=== PATIENT | female | born 1940 | race Caucasian/White ===

== ENCOUNTER → 2016-08-07 | Outpatient (CLI) | payer OTHER | LOC: BMCIMAGING 16:55 | PROVIDERS: ATTEND Family Medicine | DX: Z01.818 Encounter for other preprocedural examination (principal) ==

== ENCOUNTER 2016-08-12 23:01 | Inpatient (IN) | payer OTHER ==
[2016-08-12] MEDS ORDERED: NS 1,000 ML IV ONE (23:09)
--- NOTE | 2016-08-12 23:14 | EDPHY ---
H & P Time Seen by Provider: 08/12/16 23:08 HPI/ROS: HPI The patient presents with an episode of decreased responsiveness which occurred just prior to arrival. She had taken a shower and was sitting on the couch watching the news with her family when she because began mumbling and slumped forward. She was not able to talk clearly and was mumbling. She was able to follow some commands but seemed generally weak. Her family noticed some shaking of her right arm. This lasted for about 3 minutes head and then resolved. By the time paramedics arrived the patient was awake and alert though appeared ashen and diaphoretic. The patient says that she did not have any warning prior to this episode, no dizziness, lightheadedness, chest pain, palpitations, shortness of breath. She now feels well. She is not on any new medications. She is supposed to undergo spinal surgery tomorrow for herniated disc. She has been under significant amount of stress. She is here with her family who are in from out of town for her operation.. REVIEW OF SYSTEMS Constitutional: No fever, no chills. Eyes: No discharge. ENT: No sore throat. Cardiovascular: No chest pain, no palpitations. Respiratory: No cough, no shortness of breath. Gastrointestinal: No abdominal pain, no vomiting. Genitourinary: No hematuria. Musculoskeletal: No back pain. Skin: No rashes. Neurological: No headache. PMHx: History of brain aneurysm with shunt Soc Hx: Lives at home by herself PHYSICAL General Appearance: Alert, no distress Eyes: Pupils equal and round no pallor or injection ENT, Mouth: Mucous membranes moist Respiratory: There are no retractions, lungs are clear to auscultation Cardiovascular: Regular rate and rhythm Gastrointestinal: Abdomen is soft and non-tender, no masses, bowel sounds normal Neurological: A&O, moves all extremities Skin: Warm and dry, no rashes Musculoskeletal: Neck is supple non tender Extremities: symmetrical, full range of motion Psychiatric: Patient is oriented X 3, there is no agitation Source: Patient, Family, EMS - Medical/Surgical History Hx Diabetes: No - Social History Smoking Status: Former smoker Constitutional: Initial Vital Signs Temperature (C) 36.5 C 08/12/16 23:10 Heart Rate 63 08/12/16 23:10 Respiratory Rate 16 08/12/16 23:10 Blood Pressure 137/78 H 08/12/16 23:10 O2 Sat (%) 96 08/12/16 23:10 O2 Delivery Mode Room Air Allergies/Adverse Reactions: topiramate [From Topamax] Allergy (Severe, Verified 08/03/16 13:48) LOSS OF EYESIGHT Home Medications: Medication Instructions Recorded Aspirin EC [Aspirin EC 325 mg (*)] 325 mg PO DAILY PRN 07/27/16 Atorvastatin Calcium [Lipitor 20 20 mg PO DAILY 07/27/16 mg (*)] Diclofenac Sodium [Voltaren 75 MG 75 mg PO BID PRN 07/27/16 (*)] Furosemide [Lasix 40 MG (*)] 40 mg PO DAILY 07/27/16 Metoprolol Tartrate [Lopressor 25 25 mg PO BID 07/27/16 mg (*)] Potassium Cl [Klor-Con 20 meq (*)] 20 meq PO DAILY 07/27/16 Valsartan/Hctz [Diovan Hct 80/12.5 2 each PO DAILY 07/27/16 mg (*)] Zolpidem Tartrate [Ambien 5MG (*)] 5 mg PO HS PRN 07/27/16 methYLPHENIDATE HCL [Ritalin 10mg 10 mg PO DAILY PRN 07/27/16 (*)] traMADol [Ultram 50 mg (*)] 50 mg PO Q6 PRN 07/27/16 Medical Decision Making - Diagnostics EKG Interpretation: EKG: Complete interpretation has been separately recorded in the [facility] archive. Summary impression: Normal sinus rhythm Imaging: CT head shows no acute bleed, discussed with the radiologist Dr. Valdez. Chest x-ray one view is unremarkable without infiltrate, reviewed by me, radiology interpretation is pending. ED Course/Re-evaluation: The patient was stable throughout her time in the emergency room. Her neurologic exam was always normal. She had no events on telemetry. Labs and studies were all relatively unremarkable except for mild dehydration. I have discussed the case with the hospitalist Dr. Iglesias and we plan to admit her for observation. The patient is in agreement with this plan. Differential Diagnosis: This 76-year-old female with history of brain aneurysm, hypertension, hyperlipidemia, scheduled for spinal operation tomorrow for herniated disc who presents brought in by ambulance for an episode of unresponsiveness which occurred while she was seated on the couch with no preceding symptoms, lasting for about 3 minutes, now completely resolved with normal neurologic exam. During this episode she seemed to be awake, however could not follow all commands and was slumped forward though eyes were open. Differential diagnosis includes TIA, syncope, presyncope, seizure. - Data Points Laboratory Results: Laboratory Results 08/12/16 23:00 08/12/16 23:00 08/12/16 08/12/16 23:00 23:00 WBC 9.24 10^3/uL 10^3/uL (3.80-9.50) RBC 4.78 10^6/uL 10^6/uL (4.18-5.33) Hgb 14.9 g/dL g/dL (12.6-16.3) Hct 41.7 % % (38.0-47.0) MCV 87.2 fL fL (81.5-99.8) MCH 31.2 pg pg (27.9-34.1) MCHC 35.7 g/dL g/dL (32.4-36.7) RDW 12.7 % % (11.5-15.2) Plt Count 201 10^3/uL 10^3/uL (150-400) MPV 12.4 fL H fL (8.7-11.7) Neut % (Auto) 54.4 % % (39.3-74.2) Lymph % (Auto) 32.8 % % (15.0-45.0) [place] % (Auto) 10.2 % % (4.5-13.0) Eos % (Auto) 1.4 % % (0.6-7.6) Baso % (Auto) 1.0 % % (0.3-1.7) Nucleat RBC Rel Count 0.0 % % (0.0-0.2) Absolute Neuts (auto) 5.03 10^3/uL 10^3/uL (1.70-6.50) Absolute Lymphs (auto) 3.03 10^3/uL H 10^3/uL (1.00-3.00) Absolute Monos (auto) 0.94 10^3/uL H 10^3/uL (0.30-0.80) Absolute Eos (auto) 0.13 10^3/uL 10^3/uL (0.03-0.40) Absolute Basos (auto) 0.09 10^3/uL 10^3/uL (0.02-0.10) Absolute Nucleated RBC 0.00 10^3/uL 10^3/uL (0-0.01) Immature Gran % 0.2 % % (0.0-1.1) Immature Gran # 0.02 10^3/uL 10^3/uL (0.00-0.10) Sodium 139 mEq/L mEq/L (134-144) Potassium 3.3 mEq/L L mEq/L (3.5-5.2) Chloride 98 mEq/L mEq/L (97-110) Carbon Dioxide 27 mEq/l mEq/l (22-31) Anion Gap 14 mEq/L mEq/L (8-16) BUN 34 mg/dL H mg/dL (7-23) Creatinine 1.3 mg/dL H mg/dL (0.6-1.0) Estimated GFR 40 Glucose 106 mg/dL H mg/dL (70-100) Calcium 9.8 mg/dL mg/dL (8.5-10.4) Troponin I 0.016 ng/mL ng/mL (0-0.034) Medications Given: Discontinued Medications Sodium Chloride (Ns) 1,000 mls @ 500 mls/hr IV EDNOW ONE Stop: 08/13/16 01:08 Last Admin: 08/12/16 23:26 Dose: 1,000 mls Potassium Chloride (Potassium Chloride Oral Liquid) 40 meq PO ONCE ONE Stop: 08/13/16 02:31 Last Admin: 08/13/16 01:58 Dose: Not Given Zolpidem Tartrate (Ambien) 5 mg PO ONCE ONE Stop: 08/13/16 01:59 Last Admin: 08/13/16 02:02 Dose: 5 mg Departure - Departure Disposition: [facility] Clinical Impression: Altered mental status Qualifiers: Altered mental status type: transient alteration of awareness Qualified Code(s) : R40.4 - Transient alteration of awareness Condition: Fair
[2016-08-12 23:23] LABS: % IMMATURE GRANULYOCYTES 0.2 % (0.0-1.1); ABSOLUTE IMMATURE GRANULOCYTES 0.02 10^3/uL (0.00-0.10); ADD DIFF? NO; ADD MORPH? NO; ADD SCAN? NO; ATYPICAL LYMPHOCYTE FLAG 10 (0-99); FRAGMENT RBC FLAG 0 (0-99); HEMATOCRIT 41.7 % (38.0-47.0); HEMOGLOBIN 14.9 g/dL (12.6-16.3); LEFT SHIFT FLG 0 (0-99); LIPEMIA HEMOLYSIS FLAG 90 (0-99); MEAN CELL HEMOGLOBIN 31.2 pg (27.9-34.1); MEAN CELL HEMOGLOBIN CONCENTR. 35.7 g/dL (32.4-36.7); MEAN CELL VOLUME 87.2 fL (81.5-99.8); MEAN PLATELET VOLUME 12.4 fL (8.7-11.7); PLATELET CLUMPS FLAG 0 (0-99); PLATELET COUNT 201 10^3/uL (150-400); RED BLOOD CELL COUNT 4.78 10^6/uL (4.18-5.33); RED CELL DISTRIBUTION WIDTH 12.7 % (11.5-15.2)
[2016-08-12 23:34] LABS: ANION GAP 14 mEq/L (8-16); CALCIUM 9.8 mg/dL (8.5-10.4); CARBON DIOXIDE 27 mEq/l (22-31); CHLORIDE 98 mEq/L (97-110); CREATININE 1.3 mg/dL (0.6-1.0); GLOMERULAR FILTRATION RATE 40; GLUCOSE 106 mg/dL (70-100); POTASSIUM 3.3 mEq/L (3.5-5.2); SODIUM 139 mEq/L (134-144)
[2016-08-12 23:44] LABS: TROPONIN I 0.016 ng/mL (0-0.034)
[2016-08-13] MEDS ORDERED: NS 1,000 ML IV SCH (00:30)
--- NOTE | 2016-08-13 00:32 | CPEKG ---
Heart Rate: 64 RR Interval: 938 P-R Interval: 196 QRSD Interval: 96 QT Interval: 436 QTC Interval: 450 P [place]: 56 QRS [place]: -17 T Wave [place]: 34 EKG Severity - ABNORMAL ECG - EKG Impression: SINUS RHYTHM EKG Impression: BORDERLINE LEFT AXIS DEVIATION Electronically Signed By: Camila Fox 13-Aug-2016 06:21:41
[2016-08-13 01:04] LABS: COLOR YELLOW; LEUKOCYTE ESTERASE,URINE 2+ (NEGATIVE); NITRITE,URINE NEGATIVE (NEGATIVE)
--- NOTE | 2016-08-13 01:09 | PDGENHP ---
History and Physical - Chief Complaint unresponsive episode - History of Present Illness Patient is a 76/F with hypertension, hyperlipidemia, lumbar radiculopathy and history of clipped cerebral aneurysm who presented to the ED with an episode of unresponsiveness this evening. Patient was sitting on the couch with her daughter, when she indicated to her daughter she was not feeling well. When daughter looked over patient was trying to speak but her speech was dysarthric and she seemed like she couldn't express herself. Patient did not feel like she lost consciousness, but she reported feeling an extreme weakness and that she couldn't speak. Daughter then immediately called EMS. By the time EMS arrived to the home about 3-5 minutes later, the patient's symptoms had completely resolved and she was back to her baseline. With this aphasic episode, daughter denies any obvious facial drooping, patient denies any numbness, tingling or focal weakness. Of note, patient suffers from lumbar spondylolisthesis with chronic R sided radicular pain and was scheduled to undergo lumbar spinal surgery on 08/13. Patient states she had been prescribed tramadol for the pain until her surgery, which she states had decreased her appetite and caused her significant nausea/ vomiting over the past 1-2 weeks. She denies any recent fevers, chills, headache , chest pain, palpitations, abdominal pain or dysuria. Also of note, in preparation for her lumbar surgery, she underwent nuclear stress testing last week that was reported as normal. On arrival to the ED, patient was afebrile and hemodynamically stable. CBC was normal, BMP revealed hypokalemia and mild elevation in BUN/creatinine when compared to pre-op labs from 08/07. CXR was unremarkable and CT head showed her chronic [employer] shunt, but no acute abnormalities. EKG showed TWI in V 1-V3 (no old to compare). She was given IVF hydration and admitted to the hospitalist service for further management. History Information - Allergies/Home Medication List Allergies/Adverse Reactions: topiramate [From Topamax] Allergy (Severe, Verified 08/03/16 13:48) LOSS OF EYESIGHT Home Medications: Aspirin EC [Aspirin EC 325 mg (*)] 325 mg PO DAILY PRN 07/27/16 [Last Taken Unknown] Atorvastatin Calcium [Lipitor 20 mg (*)] 20 mg PO DAILY 07/27/16 [Last Taken Unknown] Diclofenac Sodium [Voltaren 75 MG (*)] 75 mg PO BID PRN 07/27/16 [Last Taken Unknown] Furosemide [Lasix 40 MG (*)] 40 mg PO DAILY 07/27/16 [Last Taken Unknown] Metoprolol Tartrate [Lopressor 25 mg (*)] 25 mg PO BID 07/27/16 [Last Taken Unknown] Potassium Cl [Klor-Con 20 meq (*)] 20 meq PO DAILY 07/27/16 [Last Taken Unknown] Valsartan/Hctz [Diovan Hct 80/12.5 mg (*)] 2 each PO DAILY 07/27/16 [Last Taken Unknown] Zolpidem Tartrate [Ambien 5MG (*)] 5 mg PO HS PRN 07/27/16 [Last Taken Unknown] methYLPHENIDATE HCL [Ritalin 10mg (*)] 10 mg PO DAILY PRN 07/27/16 [Last Taken Unknown] traMADol [Ultram 50 mg (*)] 50 mg PO Q6 PRN 07/27/16 [Last Taken Unknown] I have personally reviewed and updated: family history, medical history, social history, surgical history - Past Medical History Additional medical history: HTN. HLD. lumbar radiculopathy. h/o cerebral aneurysm rupture s/p clipping and [employer] shunt placement - Surgical History Additional surgical history: R shoulder replacement. Appendectomy. 2004 craniotomy for aneurysm clipping and shunt placement - Family History Additional family history: pt adopted - Social History Smoking Status: Former smoker (quit 20 years ago, smoked x 30 years) Alcohol Use: None Drug Use: None Additional social history: Patient lives alone in [place], two daughters live in [place] where she is originally from. Review of Systems ROS: 10pt was reviewed & negative except for what was stated in HPI & below Physical Exam Temp Pulse Resp BP Pulse Ox 36.4 C 68 16 125/74 H 94 08/13/16 00:00 08/13/16 00:19 08/13/16 00:19 08/13/16 00:19 08/13/16 00:19 Constitutional: no apparent distress, appears nourished, not in pain Eyes: PERRL, anicteric sclera, EOMI Ears, Nose, Mouth, Throat: moist mucous membranes, hearing normal, ears appear normal, no oral mucosal ulcers Cardiovascular: regular rate and rhythym, no murmur, rub, or gallop, pulses symmetric bilaterally, No JVD, No edema Peripheral Pulses: 2+: dorsalis-pedis (R), dorsalis-pedis (L) Respiratory: no respiratory distress, no rales or rhonchi, clear to auscultation Gastrointestinal: normoactive bowel sounds, soft, non-tender abdomen, no palpable masses Genitourinary: no bladder fullness, no bladder tenderness Skin: warm, normal color, no rashes or abrasions, no fluctuance, no induration, No mottled Musculoskeletal: full muscle strength, no muscle tenderness, normal joint ROM, no joint effusions Neurologic: AAOx3, sensation intact bilaterally, CN II-XII Intact, No weakness, No numbness, No pronator drift, No facial droop Psychiatric: interacting appropriately, not anxious, not encephalopathic, thought process linear Lab Data & Imaging Review 08/12/16 23:00 08/12/16 23:00 WBC 9.24 10^3/uL (3.80-9.50) 08/12/16 23:00 RBC 4.78 10^6/uL (4.18-5.33) 08/12/16 23:00 Hgb 14.9 g/dL (12.6-16.3) 08/12/16 23:00 Hct 41.7 % (38.0-47.0) 08/12/16 23:00 MCV 87.2 fL (81.5-99.8) 08/12/16 23:00 MCH 31.2 pg (27.9-34.1) 08/12/16 23:00 MCHC 35.7 g/dL (32.4-36.7) 08/12/16 23:00 RDW 12.7 % (11.5-15.2) 08/12/16 23:00 Plt Count 201 10^3/uL (150-400) 08/12/16 23:00 MPV 12.4 fL (8.7-11.7) H 08/12/16 23:00 Neut % (Auto) 54.4 % (39.3-74.2) 08/12/16 23:00 Lymph % (Auto) 32.8 % (15.0-45.0) 08/12/16 23:00 [place] % (Auto) 10.2 % (4.5-13.0) 08/12/16 23:00 Eos % (Auto) 1.4 % (0.6-7.6) 08/12/16 23:00 Baso % (Auto) 1.0 % (0.3-1.7) 08/12/16 23:00 Nucleat RBC Rel Count 0.0 % (0.0-0.2) 08/12/16 23:00 Absolute Neuts (auto) 5.03 10^3/uL (1.70-6.50) 08/12/16 23:00 Absolute Lymphs (auto) 3.03 10^3/uL (1.00-3.00) H 08/12/16 23:00 Absolute Monos (auto) 0.94 10^3/uL (0.30-0.80) H 08/12/16 23:00 Absolute Eos (auto) 0.13 10^3/uL (0.03-0.40) 08/12/16 23:00 Absolute Basos (auto) 0.09 10^3/uL (0.02-0.10) 08/12/16 23:00 Absolute Nucleated RBC 0.00 10^3/uL (0-0.01) 08/12/16 23:00 Immature Gran % 0.2 % (0.0-1.1) 08/12/16 23:00 Immature Gran # 0.02 10^3/uL (0.00-0.10) 08/12/16 23:00 Sodium 139 mEq/L (134-144) 08/12/16 23:00 Potassium 3.3 mEq/L (3.5-5.2) L 08/12/16 23:00 Chloride 98 mEq/L (97-110) 08/12/16 23:00 Carbon Dioxide 27 mEq/l (22-31) 08/12/16 23:00 Anion Gap 14 mEq/L (8-16) 08/12/16 23:00 BUN 34 mg/dL (7-23) H 08/12/16 23:00 Creatinine 1.3 mg/dL (0.6-1.0) H 08/12/16 23:00 Estimated GFR 40 08/12/16 23:00 Glucose 106 mg/dL (70-100) H 08/12/16 23:00 Calcium 9.8 mg/dL (8.5-10.4) 08/12/16 23:00 Troponin I 0.016 ng/mL (0-0.034) 08/12/16 23:00 Visualized and Interpreted Chest x-ray results: Yes Chest X-Ray results: no infiltrate, normal Visualized and Interpreted EKG results: Yes EKG Interpretation: Positive for: normal sinsus rhythm (TWI v1-v3) Assessment & Plan Assessment: Patient is a 76-year-old female with history of hypertension, hyperlipidemia, ruptured brain aneurysm and lumbar radiculopathy who presents with with an episode of aphasia lasting less than 10 minutes, now back to baseline neuro status. ED workup reveals mild CHIN, normal CT head and CXR. Plan: # transient aphasic episode Per the description given by patient and her daughter, differential includes TIA versus presyncopal/near syncopal episode. Patient does give a history of recent decreased p.o. intake, nausea and vomiting due to side effects from her pain medicine, and labs reveal evidence of dehydration. CT head, chest x-ray are within normal limits. UA is slightly positive for WBCs in leuk esterase, however patient denies any urinary symptoms, is afebrile and has no leukocytosis , so no clinical evidence to support urinary infection. For pre-op evaluation , patient recently had EKG, nuclear stress test performed last week, which were reported to be normal. Will evaluate for TIA with CT angio head/neck and MRI brain and obtain records from recent cardiac testing. Will also provide IVF hydration and replete and recheck electrolytes. # lumbar Spondylolisthesis with radiculopathy Patient's surgeon was informed of her admission. Pending completion of above will reassess timing of planned surgery. Will provide pain control prn. # HTN BP stable on presentation, will cont to monitor. # HLD Cont home med. # dispo: admit to observation status for TIA work up # gen: NPO Full code
[2016-08-13 01:13] LABS: MUCUS TRACE /lpf (NONE-1+); RBC,URINE 25-50 /hpf (0-3); WBC,URINE 25-50 /hpf (0-3)
[2016-08-13] MEDS ORDERED: POTASSIUM CL 20 MEQ/15 ML UDCUP PO ONE ×2 (01:31→02:30)
[2016-08-13] MEDS ORDERED: ZOLPIDEM TARTRATE 5 MG TAB PO ONE (01:58)
[2016-08-13] MEDS ORDERED: ONDANSETRON DISINTEGRATING 4 MG TAB ONE (06:37)
[2016-08-13 06:38] LABS: % IMMATURE GRANULYOCYTES 0.5 % (0.0-1.1); ABSOLUTE IMMATURE GRANULOCYTES 0.03 10^3/uL (0.00-0.10); ADD DIFF? NO; ADD MORPH? NO; ADD SCAN? NO; ATYPICAL LYMPHOCYTE FLAG 10 (0-99); FRAGMENT RBC FLAG 0 (0-99); HEMATOCRIT 32.4 % (38.0-47.0); HEMOGLOBIN 11.7 g/dL (12.6-16.3); LEFT SHIFT FLG 0 (0-99); LIPEMIA HEMOLYSIS FLAG 90 (0-99); MEAN CELL HEMOGLOBIN 32.6 pg (27.9-34.1); MEAN CELL HEMOGLOBIN CONCENTR. 36.1 g/dL (32.4-36.7); MEAN CELL VOLUME 90.3 fL (81.5-99.8); MEAN PLATELET VOLUME 12.4 fL (8.7-11.7); PLATELET CLUMPS FLAG 10 (0-99); PLATELET COUNT 124 10^3/uL (150-400); RED BLOOD CELL COUNT 3.59 10^6/uL (4.18-5.33); RED CELL DISTRIBUTION WIDTH 12.9 % (11.5-15.2)
[2016-08-13] MEDS: OXYCODONE/APAP 5/325 TAB PO PRN ×3 (06:39→22:51)
[2016-08-13 06:55] LABS: ANION GAP 9 mEq/L (8-16); CALCIUM 8.9 mg/dL (8.5-10.4); CARBON DIOXIDE 22 mEq/l (22-31); CHLORIDE 108 mEq/L (97-110); CREATININE 0.9 mg/dL (0.6-1.0); GLOMERULAR FILTRATION RATE > 60; GLUCOSE 94 mg/dL (70-100); POTASSIUM 3.4 mEq/L (3.5-5.2); SODIUM 139 mEq/L (134-144)
[2016-08-13 07:07] LABS: TROPONIN I 0.014 ng/mL (0-0.034)
--- NOTE | 2016-08-13 13:05 | HOSPPROG ---
Hospitalist Progress Note Assessment/Plan: #Concern for TIA: suspect due overmedication, dehydration and possible UTI. Symptoms completely resolved. CTA pending. MRI not warranted at this time (plus cannot perform since unclear type of [employer] shunt) #Pyuria: treated for UTI 2 weeks ago with Keflex. Hold off abx now, culture date pending #Lumbar spondylolithesis, radiculopathy: had surgery scheduled today with Dr. Murguia. He is determining schedule of time -recent EKG with bradycardia and no arrhythmia. Lexiscan test 08/08/16 with no ischemic changes #Benign HTN: home meds #HLD: statin #Diet regular #DVT ppx: ambulatory #Disp: awaiting NSGY plan, if no surgery planned then will DC home if normal CTA Subjective: feels fine today. No f/c/s Objective: Vital Signs Temp Pulse Resp BP Pulse Ox 36.4 C 70 18 103/58 L 94 08/13/16 08:00 08/13/16 08:00 08/13/16 08:00 08/13/16 08:00 08/13/16 08:00 Laboratory Results 08/13/16 06:20 08/13/16 06:00 08/12/16 08/13/16 08/14/16 05:59 05:59 05:59 Intake Total 1550 Output Total 500 Balance 1050 - Physical Exam Constitutional: no apparent distress Eyes: PERRL Ears, Nose, Mouth, Throat: moist mucous membranes Cardiovascular: regular rate and rhythym, no murmur, rub, or gallop Respiratory: no respiratory distress, no rales or rhonchi Gastrointestinal: normoactive bowel sounds, soft, non-tender abdomen, no palpable masses Genitourinary: no bladder fullness, other (no CVA TTP) Musculoskeletal: other (+ straight leg test on right. No pinpoint TTP) Neurologic: AAOx3, CN II-XII Intact Psychiatric: interacting appropriately ICD10 Worksheet Patient Problems: Problems Problem Status Onset Altered mental status Acute
[2016-08-13] MEDS: ATORVASTATIN CALCIUM 20 MG TAB PO SCH (15:54)
[2016-08-13] MEDS: FUROSEMIDE 40 MG TAB PO SCH (15:54)
[2016-08-13] MEDS: METOPROLOL TARTRATE 25 MG TAB PO SCH (22:51)
[2016-08-13] MEDS: ZOLPIDEM TARTRATE 5 MG TAB PO SCH (22:51)
[2016-08-14] MEDS ORDERED: BACITRACIN OINTMENT 1 PACKET TP ONE (05:45)
[2016-08-14 06:32] LABS: HEMATOCRIT 34.9 % (38.0-47.0); HEMOGLOBIN 12.2 g/dL (12.6-16.3); MEAN CELL HEMOGLOBIN 31.9 pg (27.9-34.1); MEAN CELL VOLUME 91.1 fL (81.5-99.8); RED BLOOD CELL COUNT 3.83 10^6/uL (4.18-5.33); RED CELL DISTRIBUTION WIDTH 13.2 % (11.5-15.2)
[2016-08-14] MEDS ORDERED: BUPIVACAINE/EPI 0.25% 30 ML SDV ONE (07:41)
[2016-08-14] MEDS ORDERED: THROMBIN (RECOMBINANT) 5,000 UNIT VIAL TP ONE (07:41)
[2016-08-14] MEDS ORDERED: BACITRACIN 50,000 UNITS/10 ML SYR IRR ONE (07:41)
[2016-08-14] MEDS ORDERED: SKIN ADHESIVE (DERMABOND) 1 EACH TP ONE (07:42)
[2016-08-14] MEDS ORDERED: REMIFENTANIL HCL 1 MG VIAL ONE ×3 (08:09→08:10)
[2016-08-14] MEDS ORDERED: ROCURONIUM 50 MG/5 ML VIAL ONE ×2 (08:09→08:57)
[2016-08-14] MEDS ORDERED: fentaNYL 100 MCG/2 ML INJ ONE ×3 (08:10→13:23)
[2016-08-14] MEDS ORDERED: PROPOFOL/EMULSION 500 MG/50 ML BOTTLE IV ONE ×3 (08:10→11:26)
[2016-08-14] MEDS ORDERED: DEXAMETHASONE 4 MG/ML VIAL ONE (08:13)
[2016-08-14] MEDS ORDERED: PROPOFOL 200 MG/20 ML VIAL ONE (08:14)
[2016-08-14] MEDS ORDERED: HYDROmorphONE/DILAUDID 2 MG/ML INJ ONE (08:58)
[2016-08-14] MEDS ORDERED: Herbals/Supplements -Info Only PO SCH (09:00)
[2016-08-14] MEDS ORDERED: ONDANSETRON 4 MG/2 ML VIAL ONE (11:44)
[2016-08-14] MEDS ORDERED: SUGAMMADEX SODIUM 200 MG/2 ML VIAL IVP ONE (11:44)
[2016-08-14] MEDS ORDERED: morphINE PF 5 MG/10 ML INJ ONE (11:57)
[2016-08-14] MEDS ORDERED: ceFAZolin 1 GM VIAL ONE (12:02)
[2016-08-14] MEDS ORDERED: DIAZEPAM 10 MG/2 ML SYR IVP PRN (12:59)
[2016-08-14] MEDS ORDERED: diphenhydrAMINE 25 MG CAP PO PRN (12:59)
[2016-08-14] MEDS ORDERED: PROMETHAZINE HCL 25 MG/ML INJ IVP PRN (12:59)
[2016-08-14] MEDS ORDERED: MAGNESIUM HYDROXIDE 30 ML UDCUP PO PRN (12:59)
[2016-08-14] MEDS ORDERED: BISACODYL 10 MG SUPP PR PRN (12:59)
[2016-08-14] MEDS ORDERED: HYDROmorphONE/DILAUDID 1 MG/ML SYR IVP PRN (12:59)
[2016-08-14] MEDS ORDERED: METHOCARBAMOL 750 MG TAB PO PRN (12:59)
[2016-08-14] MEDS ORDERED: POLYETHYLENE GLYCOL 3350 17 GM PKT PO PRN (12:59)
[2016-08-14] MEDS ORDERED: ONDANSETRON 4 MG/2 ML VIAL IVP PRN (12:59)
[2016-08-14] MEDS ORDERED: LACTULOSE 20 GM/30 ML UDCUP PO PRN (12:59)
--- NOTE | 2016-08-14 13:16 | POSTOPPROG ---
Post Op Note Date of Operation: 08/14/16 Surgeon: Gomez Murguia Traffic Administrator: Eliezer Stovall Anesthesiologist: Javier Willams Anesthesia: GET(General Endotracheal) Pre-op Diagnosis: lumbar spondylolisthesis w/ radiculopathy Post-op Diagnosis: lumbar spondylolisthesis w/ radiculopathy Procedure: L45, L5S1 PSF and TLIF's Findings: spondylolisthesis at L45 adn L5S1, compressed nerve root at L5S1 on Right Inf/Abcess present in the surg proc area at time of surgery?: No Depth: Organ Space EBL: 100-500 Drains: Aron Pollack
--- NOTE | 2016-08-14 13:34 | NEUSURGPN ---
Date of Surgery: 08/14/16 Post Op Day: 0 Assessment/Plan: 76F s/p L45 L5S1 PSF and TLIF's -advance diet as tolerated -optimize pain contol -no need for brace when OOB -PT/OT to eval and treat -DVT ppx POD#1 -JPx1 Case discussed with Dr. Murguia Subjective: Pt waking up form anesthesia, has some back pain and c/o of dry thoat Objective: NAD VSS EOMI, PEARLA cnii-xii grossly intact no facial droop MAEx4, BLE 5/5= =LT JPx1 incision c/d/i - Physician Discussed Patient with : [facility] Physical Exam - Vitals, I&O, Labs I and O 08/13/16 08/14/16 08/15/16 05:59 05:59 05:59 Intake Total 0 1300 Output Total 240 Balance 0 1060 Weight 80.28 kg Intake: IV Intake (ml) 0 1300 Output: Estimated Blood Loss (ml) 200 Wound Drainage (ml) 40 Back Aron Pollack 40 Vital Signs Temp Pulse Resp BP Pulse Ox 36.9 C 90 16 91/68 L 97 08/14/16 13:20 08/14/16 13:20 08/14/16 13:20 08/14/16 13:20 08/14/16 13:20 Laboratory Results 08/14/16 06:15 ICD10 Worksheet Patient Problems: Problems Problem Status Onset Altered mental status Acute
--- NOTE | 2016-08-14 13:38 | GOP ---
[f rep st] OPERATIVE REPORT Amended report DATE OF OPERATION: 08/14/2016 SURGEON: Gomez Murguia MD PRODUCE PRODUCTION TEAM MEMBER: Eliezer Stovall PA-C. ANESTHESIA: General endotracheal. PREOPERATIVE DIAGNOSIS: Right L5 radiculopathy with mobile spondylolisthesis at L4-5 and L5-S1. POSTOPERATIVE DIAGNOSIS: Right L5 radiculopathy with mobile spondylolisthesis at L4-5 and L5-S1. PROCEDURE PERFORMED: 1. L4-5, L5-S1 transforaminal lumbar interbody fusions. 2. Placement of pedicle screw posterior instrumentation at L4, L5, S1. 3. Placement of interbody device at L4-5, L5-S1. 4. O-arm stereotactic neuronavigation for screw placement. 5. [place] of local autograft. 6. Use of allograft, BMP, and demineralized bone matrix. 7. Hemilaminectomy at L4 and L5 with lateral recess decompression. FINDINGS: Spondylolisthesis. SPECIMENS: There were no specimens. ESTIMATED BLOOD LOSS: 200 cc. INDICATIONS: The patient a 76-year-old woman who has had intractable right L5 radiculopathy which has been resistant to conservative management. Her imaging showed a mobile spondylolisthesis at L4-5 and she was scheduled for surgery electively. She presents for that surgery today. Originally, we were planning on just L4-5 transfemoral lumbar interbody fusion. However, upon review of the films and after the O-arm spin it became evident that the larger spondylolisthesis was at L5-S1 and that this spondylolisthesis had been mislabeled on previous films because of her sacralized lumbar vertebrae. We, therefore, decided intraoperatively and I spoke to her daughters about including the L5-S1 level as it is quite possible that the steroid injections which were done also used this numbering system, which was incorrect and it did appear that there might be some foraminal stenosis at L5- S1 on the right side. DESCRIPTION OF PROCEDURE: After informed consent was obtained from the patient , the patient was brought to the operating room, and a formal time-out was performed identifying the patient by name, medical record number, and date of . Preoperative antibiotics were given. The endotracheal tube was placed and general endotracheal anesthesia was smoothly induced. All appropriate leads were placed for somatosensory evoked potential monitoring. The patient was turned into the prone position on the Aron table. All appropriate pressure points were padded and checked. The lower lumbar region was then prepped and draped in the normal sterile fashion. 20 cc of 0.25% Marcaine with epinephrine was infiltrated in the skin for hemostasis. The O-arm was used to obtain AP and lateral x-rays localizing the L4-5 interspace. This was used to plan a roughly 6 cm skin incision and this was made using a 10 blade. The subcutaneous tissue was dissected using monopolar electrocautery. The fascia was opened in the midline and the paraspinous muscles were taken down from the spinous process localizing the full facet joints at L4-5 and L5-S1. An O-arm spin was then obtained and this was ultimately when we made the decision to include the L5-S1 level. The slip at L4 -5 was smaller, but still mobile on the preoperative x-rays, but it appears as though the level that was originally labeled L4-5 on preoperative x-rays was indeed L5-S1. We, therefore, after speaking with the daughter decided to do L4- 5 and L5-S1 to get adequate decompression of the L5 nerve root which was compressed in the lateral recess from the L4-5 spondylolisthesis and the foramen from the L5-S1 spondylolisthesis. We then used the O-arm spin to place the pedicle screws stereotactically at L4, L5, and S1. At L4 on the left we placed a 6.5 x 55 mm Medtronic Solera screw at L5 on the left, 6.5 x 55 mm Medtronic Solera screw at S1 on the left, a 6.5 x 55 mm Medtronic Solera screw, at L4 on the right a 6.5 x 55 mm Medtronic Solera screw, at L5 on the right a 6.5 x 55 mm Medtronic Solera screw and at S1 on the right a 6.5 x 50 mm Medtronic Solera screw. All the screw heads were stimulated and all stimulated above threshold. A second O-arm spin was obtained showing all the screws in the pedicle with no breach. At this point, the high-speed drill was then used to drill down the inferior lamina of L4 and the complete lamina of L5 and the upper lamina of S1 on the right side. The inferior articulating process of L5 and L4 were removed exposing the foramen. The foramen at L4-5 and L5-S1 was completely decompressed on the right side and the L5 nerve root was followed all the way through the lateral recess down through the foramen and was completely decompressed. At this point, the disk space at L4-5 was localized and the L5 nerve root was retracted medially. The disk space was entered and a complete diskectomy was performed using curettes and pituitary forceps. Once the disk was completely removed the disk space was sized for an 8 mm x 28 mm Medtronic Elevate cage. Some BMP allograft was then placed in the contralateral side of the disk space as well as into the cage. Some autograft was also placed in the cage and the cage was then placed into the disk space and medialized across the midline. The position of the cage was confirmed with a lateral radiograph and the cage was opened to its full extent. We then packed a little bit more autograft bone on the ipsilateral side being sure that the nerve root was not compressed. The same procedure was then performed at L5-S1. The disk was completely removed and the disk space was sized for an 8 mm x 23 mm Medtronic Elevate cage which was again packed with some BMP and autograft. Some BMP and autograft was also placed on the opposite side of the disk space. The cage was placed into the disk space and it after its position was confirmed with AP and lateral radiographs the cage was opened to its fullest extent. At this point, the wound was copiously irrigated using bacitracin irrigation. Both the L4, L5, and S1 nerve roots were all completely decompressed on the right side. We, therefore, sized each side for 55 mm titanium rods which were placed into the screw heads and locked in with the cap screws which were finally tightened to their appropriate torque. At this point, the lamina of L4 , L5, and S1 on the left side was decorticated completely and a posterior lateral fusion was performed on that side using the remainder of the BMP and a mixture of the remainder of the autograft and some allograft, demineralized bone matrix, and bone chips. The wound was again copiously irrigated using bacitracin irrigation. 0.2 mg of Duramorph were injected under the upper edge of the L4 lamina for postoperative pain control. A subfascial HEMANT drain was then placed. The fascia was then closed using interrupted 0-Vicryl. The wound was then copiously irrigated using Bacitracin irrigation. The superficial lumbar fascia was closed using interrupted 0 Vicryl. The deep dermis was closed using interrupted 2-0 Vicryl and the skin was closed using Dermabond. The patient was then turned back into the supine position, was extubated, transferred to the PACU in stable condition. There were no operative. complications. I was scrubbed and present for the entire procedure. DRAINS: Subfascial HEMANT. COUNTS: All sponge and needle counts were correct at the end of the case. FLUIDS AND URINE OUTPUT: Per the anesthesia record. /[id number]/MODL Add acc#, 08/17/16, karen CORTEZ
[2016-08-14] MEDS: FUROSEMIDE 40 MG TAB PO SCH (14:20)
[2016-08-14] MEDS: ATORVASTATIN CALCIUM 20 MG TAB PO SCH (14:20)
[2016-08-14] MEDS: METOPROLOL TARTRATE 25 MG TAB PO SCH ×2 (14:20→21:23)
[2016-08-14] MEDS: D5W NS W/ 20 KCl/L 1,000 ML IV SCH (15:41)
[2016-08-14] MEDS: GABAPENTIN 300 MG CAP PO SCH ×2 (15:42→21:29)
[2016-08-14] MEDS ORDERED: GABAPENTIN 100 MG CAP PO SCH (16:00)
--- NOTE | 2016-08-14 16:53 | HOSPPROG ---
Hospitalist Progress Note Assessment/Plan: #Concern for TIA: suspect due overmedication, dehydration and possible UTI. Symptoms completely resolved. CTA pending. MRI not warranted at this time (plus cannot perform since unclear type of GRINDER SET UP OPERATOR GEAR TOOL shunt) #Pyuria: treated for UTI 2 weeks ago with Keflex. Hold off abx now, culture date pending #Lumbar spondylolithesis, radiculopathy: had surgery scheduled today with Dr. Murguia. He is determining schedule of time -recent EKG with bradycardia and no arrhythmia. Lexiscan test 08/08/16 with no ischemic changes #Benign HTN: home meds #HLD: statin #Diet regular #DVT ppx: ambulatory #Disp: Subjective: s/p lumbar surgery today Objective: Vital Signs Temp Pulse Resp BP Pulse Ox 36.4 C 86 15 94/76 L 95 08/14/16 16:12 08/14/16 16:12 08/14/16 16:12 08/14/16 16:12 08/14/16 16:12 Laboratory Results 08/14/16 06:15 08/13/16 08/14/16 08/15/16 05:59 05:59 05:59 Intake Total 0 1300 Output Total 270 Balance 0 1030 - Physical Exam Constitutional: no apparent distress, appears nourished Eyes: PERRL, anicteric sclera Ears, Nose, Mouth, Throat: moist mucous membranes, hearing normal, ears appear normal Cardiovascular: regular rate and rhythym, no murmur, rub, or gallop ICD10 Worksheet Patient Problems: Problems Problem Status Onset Altered mental status Acute
[2016-08-14] MEDS: SENNOSIDES/DOCUSATE SODIUM TAB PO SCH (20:50)
[2016-08-14] MEDS: oxyCODONE IR 5 MG TAB PO PRN (20:51)
[2016-08-14] MEDS: FAMOTIDINE 20 MG/NACL 50 ML IV SCH (20:52)
[2016-08-14] MEDS: ZOLPIDEM TARTRATE 5 MG TAB PO SCH (21:23)
[2016-08-15] MEDS: oxyCODONE IR 5 MG TAB PO PRN ×3 (03:37→23:19)
[2016-08-15] MEDS: D5W NS W/ 20 KCl/L 1,000 ML IV SCH (03:38)
--- NOTE | 2016-08-15 06:55 | NEUSURGPN ---
Assessment/Plan: Assessment: 76 yo F s/p L45 L5S1 PSF and TLIF's POD #1 Plan: -s/p TLIF: pt with expected back pain, legs feel better -brace fit to wear when out of bed -advance diet as tolerated -optimize pain control -no need for brace in bed -PT/OT-CPM -DVT ppx POD#1 -JPx1 -call with any questions or concerns -case discussed with Dr. Murguia Subjective: Awake and alert. NAD. Pt with expected lower back pain. No shipman/neck/chest/abd or gu complaints. No f/c/n/v/d. Objective: NAD EOMI, PEARLA cnii-xii grossly intact no facial droop MAEx4, BLE 5/5= =LT JPx1 incision c/d/i Neuro Check Frequency: per routine Urinary Catheter in Place: No - Physician Discussed Patient with : Shantal Neurosurgery Physical Exam - Vitals, I&O, Labs I and O 08/14/16 08/15/16 08/16/16 05:59 05:59 05:59 Intake Total 0 3200 Output Total 1225 80 Balance 0 1974 - Weight 80.28 kg Intake: Oral (ml) 900 IV Intake (ml) 0 1300 IV Infused (ml) 1000 D5W NS W/ 20 KCl/L 1,000 900 ml @ 100 mls/hr IV CONT DEVAN Rx#:[id number] Famotidine 20 mg/NaCl 50 50 ml @ 200 mls/hr IV Q12HRS DEVAN Rx#:[id number] ceFAZolin 1 GM/DEXTROSE 50 50 ml @ 200 mls/hr IV Q8HRS DEVAN Rx#:[id number] Output: Urine (ml) 775 Bedside Commode 400 Toilet 375 Estimated Blood Loss (ml) 200 Wound Drainage (ml) 250 80 Back Aron Pollack 250 80 Other: Number of Voids Bedside Commode 2 Vital Signs Temp Pulse Resp BP Pulse Ox 36.9 C 68 17 107/56 L 96 08/15/16 03:20 08/15/16 03:20 08/15/16 03:20 08/15/16 03:20 08/15/16 03:20 Laboratory Results 08/14/16 06:15 ICD10 Worksheet Patient Problems: Problems Problem Status Onset Altered mental status Acute
[2016-08-15] MEDS: SENNOSIDES/DOCUSATE SODIUM TAB PO SCH ×2 (10:38→19:54)
[2016-08-15] MEDS: FUROSEMIDE 40 MG TAB PO SCH (10:39)
[2016-08-15] MEDS: FAMOTIDINE 20 MG/NACL 50 ML IV SCH ×2 (10:40→13:17)
[2016-08-15] MEDS: ENOXAPARIN 40 MG/0.4 ML SYR SC SCH (10:58)
[2016-08-15] MEDS: GABAPENTIN 300 MG CAP PO SCH ×3 (13:17→19:36)
[2016-08-15] MEDS: METOPROLOL TARTRATE 25 MG TAB PO SCH ×2 (13:18→19:57)
[2016-08-15] MEDS: FAMOTIDINE 20 MG TAB PO SCH ×2 (14:44→19:55)
[2016-08-15] MEDS: ATORVASTATIN CALCIUM 20 MG TAB PO SCH (14:44)
[2016-08-15] MEDS ORDERED: DIAZEPAM 10 MG/2 ML SYR IVP PRN (16:43)
[2016-08-15] MEDS ORDERED: PROMETHAZINE HCL 25 MG/ML INJ IVP PRN (16:43)
--- NOTE | 2016-08-15 16:52 | HOSPPROG ---
Hospitalist Progress Note Assessment/Plan: #Concern for TIA: suspect due overmedication, dehydration and possible UTI. Symptoms completely resolved. CTA pending. MRI not warranted at this time (plus cannot perform since unclear type of GROUT MACHINE OPERATOR shunt) #Pyuria: treated for UTI 2 weeks ago with Keflex. Hold off abx now, culture is polymicrobial c/w colonization= no further abx #Lumbar spondylolithesis, radiculopathy: had surgery scheduled today with Dr. Murguia. He is determining schedule of time -recent EKG with bradycardia and no arrhythmia. Lexiscan test 08/08/16 with no ischemic changes #Benign HTN: home meds #HLD: statin #Diet regular #DVT ppx: rec pharmacologic dvt prophylaxis when safe from surgical perspective #Dispo: Subjective: up ambulating Objective: Vital Signs Temp Pulse Resp BP Pulse Ox 36.6 C 78 15 111/72 94 08/15/16 15:31 08/15/16 15:31 08/15/16 15:31 08/15/16 15:31 08/15/16 15:31 Laboratory Results 08/14/16 06:15 08/14/16 08/15/16 08/16/16 05:59 05:59 05:59 Intake Total 0 3200 500 Output Total 1225 170 Balance 0 1975 330 - Physical Exam Constitutional: no apparent distress, appears nourished Eyes: PERRL, anicteric sclera Ears, Nose, Mouth, Throat: moist mucous membranes, hearing normal Cardiovascular: regular rate and rhythym, no murmur, rub, or gallop Respiratory: no respiratory distress, no rales or rhonchi Gastrointestinal: normoactive bowel sounds, soft, non-tender abdomen Genitourinary: No gutierrez in urethra Skin: warm, normal color Musculoskeletal: full muscle strength, no muscle tenderness Neurologic: AAOx3 ICD10 Worksheet Patient Problems: Problems Problem Status Onset Altered mental status Acute
[2016-08-15] MEDS: ZOLPIDEM TARTRATE 5 MG TAB PO SCH (20:32)
--- NOTE | 2016-08-16 07:48 | NEUSURGPN ---
Assessment/Plan: Assessment: 76 yo F s/p L45 L5S1 PSF and TLIF's POD #2 Plan: -s/p TLIF: pt with expected back pain, legs feel better, stomach with bloating but passing gas this am -brace fit to wear when out of bed -optimize pain control -no need for brace in bed- only OOB -PT/OT-CPM -DVT ppx POD#1 -JPx1- pull today -call with any questions or concerns -Dispo- Can go home later if has BM/Passing gas -with home health care most likely -case discussed with Dr. Murguia Subjective: Patient with bloating and no BM yet but passing small amounts of gas this morning. Wants to go home today. Right leg with much improved pain. Objective: NAD, VSS BLE 5/5= Sensation intact to lt touch Incision c/d/i HEMANT X1- small amount of serosang in bulb - Physician Discussed Patient with : Shantal Neurosurgery Physical Exam - Vitals, I&O, Labs I and O 08/15/16 08/16/16 08/17/16 05:59 05:59 05:59 Intake Total 3200 600 Output Total 1225 1875 Balance 1974 -1274 Intake: Oral (ml) 900 600 IV Intake (ml) 1300 IV Infused (ml) 1000 D5W NS W/ 20 KCl/L 1,000 900 ml @ 100 mls/hr IV CONT DEVAN Rx#:[id number] Famotidine 20 mg/NaCl 50 50 ml @ 200 mls/hr IV Q12HRS DEVAN Rx#:[id number] ceFAZolin 1 GM/DEXTROSE 50 50 ml @ 200 mls/hr IV Q8HRS DEVAN Rx#:[id number] Output: Urine (ml) 775 1600 Bedside Commode 400 700 Toilet 375 900 Estimated Blood Loss (ml) 200 Wound Drainage (ml) 250 275 Back Aron Pollack 250 275 Other: Output Comment Toilet pt had some gas and liquid stool; flushed before witnessed Number of Voids Bedside Commode 2 2 Toilet 1 Vital Signs Temp Pulse Resp BP Pulse Ox 36.9 C 90 16 113/80 97 08/16/16 04:00 08/16/16 04:00 08/16/16 04:00 08/16/16 04:00 08/16/16 04:00 Laboratory Results 02/21/17 06:15 ICD10 Worksheet Patient Problems: Problems Problem Status Onset Altered mental status Acute
[2016-08-16] MEDS: GABAPENTIN 300 MG CAP PO SCH ×2 (07:55→15:11)
[2016-08-16] MEDS: SENNOSIDES/DOCUSATE SODIUM TAB PO SCH ×2 (07:55→22:13)
[2016-08-16] MEDS: FAMOTIDINE 20 MG TAB PO SCH ×2 (07:56→22:11)
[2016-08-16] MEDS: ATORVASTATIN CALCIUM 20 MG TAB PO SCH (07:56)
[2016-08-16] MEDS: FUROSEMIDE 40 MG TAB PO SCH (07:56)
[2016-08-16] MEDS: ENOXAPARIN 40 MG/0.4 ML SYR SC SCH (07:57)
[2016-08-16] MEDS: METOPROLOL TARTRATE 25 MG TAB PO SCH ×2 (07:57→22:12)
--- NOTE | 2016-08-16 07:59 | PDIAF ---
- Diagnosis Code Status: Full Code - Medication Management Discharge Medications: Medications to Continue on Transfer Atorvastatin Calcium [Lipitor 20 mg (*)] 20 mg PO DAILY 07/27/16 [Last Taken ] Furosemide [Lasix 40 MG (*)] 40 mg PO DAILY 07/27/16 [Last Taken 08/12/16] Metoprolol Tartrate [Lopressor 25 mg (*)] 25 mg PO BID 07/27/16 [Last Taken ] Potassium Cl [Klor-Con 20 meq (*)] 20 meq PO DAILY 07/27/16 [Last Taken 08/12/16 ] Zolpidem Tartrate [Ambien 5MG (*)] 5 mg PO HS PRN 07/27/16 [Last Taken 08/12/16] methYLPHENIDATE HCL [Ritalin 10mg (*)] 10 mg PO DAILY PRN 07/27/16 [Last Taken 08/12/16] Herbals/Supplements -Info Only 1 ea PO DAILY 08/13/16 [Last Taken 07/30/16] Methocarbamol [Robaxin 750 mg (*)] 750 mg PO QID PRN #60 tab 08/16/16 [Last Taken Unknown] Polyethylene Glycol 3350 [Miralax 17 gm (*)] 17 gm PO DAILY PRN #0 pkt 08/16/16 [Last Taken Unknown] Sennosides/Docusate Sodium [Senokot-S] 1 - 2 tab PO BID #0 tab 08/16/16 [Last Taken Unknown] oxyCODONE IR [Oxycodone Ir (*)] 5 - 20 mg PO Q3H PRN #0 tab 08/16/16 [Last Taken Unknown] Discharge Medications: Refer to the Discharge Home Medication list for PRN reason. - Orders Services needed: Home Care, Registered Nurse, Physical Therapy, Occupational Therapy Home Care Face to Face: I certify that this patient was under my care and that I had the required [id number] encounter meeting the encounter requirements on the discharge day. My findings support the fact that the patient is homebound as defined in CMS Chapter 7 Medicare Benefits Manual 30.1.1, The condition of the patient is such that there exists a normal inability to leave home and consequently, leaving home would require a considerable and taxing effort. Diet Recommendation: no restrictions on diet Diet Texture: Regular Texture Diet Berry Stockings Discontinue Date: Can dc when if walking at least 100 yards three times a day Wound Care Instructions: No bending lifting twisting more than 5-10 pounds. wear your brace only when out of bed, not in shower. may shower, no scrubbing incision, may get it wet, pat dry with towel, no dressings needed, only if you want. Follow up in [address] Murguia. [phone]. Monitor your incision for signs of infection, drainage(pus), fever, chills. Call [facility] with any questions or concerns Activity/Weight Bearing Restrictions: No bending lifting twisting more than 5- 10 pounds. wear your brace only when out of bed, not in shower. may shower, no scrubbing incision, may get it wet, pat dry with towel, no dressings needed, only if you want. Follow up in [address] Murguia. [phone]. Monitor your incision for signs of infection, drainage(pus), fever, chills. Call [facility] with any questions or concerns - Follow Up Care Current Providers and Referrals: Patient,NotPresent [Unknown] - As per Instructions Gomez Murguia MD [Medical Doctor] - follow up in 2 weeks
[2016-08-16] MEDS: ONDANSETRON DISINTEGRATING 4 MG TAB PO PRN ×3 (08:42→19:19)
[2016-08-16] MEDS ORDERED: PROTOCOL POTASSIUM 1 DOSE MISC PRN (10:20)
[2016-08-16 13:30] LABS: POTASSIUM 3.1 mEq/L (3.5-5.2)
[2016-08-16] MEDS ORDERED: POTASSIUM CL 10 MEQ TAB PO ONE ×2 (14:11→19:09)
--- NOTE | 2016-08-16 15:30 | HOSPPROG ---
Hospitalist Progress Note Assessment/Plan: Patient is a 76-year-old female with a history of hypertension, hyperlipidemia, lumbar radiculopathy and clip cerebral aneurysm. She presented to the emergency room with episode of unresponsiveness. She was supposed to have surgery for her back but came in earlier than surgery was scheduled due to the unresponsiveness. Her symptoms resolved prior to being admitted to the hospital per her daughter. She ended up having surgery during her stay. Today she was to be discharged home but is complaining of severe constipation. Today is my 1st encounter with the patient. Chart reviewed. #Concern for TIA: suspect due overmedication, dehydration Symptoms completely resolved. CTA of head and neck show nothing acute MRI not warranted at this time (plus cannot perform since unclear type of LEAD TANK MECHANIC shunt) #Pyuria: treated for UTI recently with Keflex. Culture is polymicrobial c/w colonization antibiotics not indicated #hypokalemia on electrolyte protocol #Lumbar spondylolithesis, radiculopathy: s/p TLIF back pain is well managed #. severe constipation having pain/ no bowel movement for multiple days get a KUB for further evaluation trial of mag citrate hold lasix for now #Benign HTN: home meds #HLD: statin #Diet regular #Dispo: pending/ patient was dc earlier by Dr Murguia, but now is c/o significant abdominal discomfort. Will get an abdominal xray/ trial of mag citrate. If she improves, could go home. Subjective: Smitha said she is feeling miserable in her abdomen/ feels bloated. Objective: Vital Signs Temp Pulse Resp BP Pulse Ox 36.8 C 83 16 127/70 H 93 08/16/16 15:25 08/16/16 15:25 08/16/16 15:25 08/16/16 15:25 08/16/16 15:25 Laboratory Results 08/14/16 06:15 08/16/16 11:13 08/15/16 08/16/16 08/17/16 05:59 05:59 05:59 Intake Total 3200 600 Output Total 1225 1875 Balance 1974 -1274 - Physical Exam Constitutional: uncomfortable Eyes: PERRL Ears, Nose, Mouth, Throat: hearing normal Cardiovascular: regular rate and rhythym Respiratory: no respiratory distress Gastrointestinal: soft, non-tender abdomen, distension (slight), No normoactive bowel sounds (hypoactive) Skin: warm Musculoskeletal: generalized weakness Neurologic: AAOx3 Psychiatric: interacting appropriately, not anxious ICD10 Worksheet Patient Problems: Problems Problem Status Onset Altered mental status Acute
[2016-08-16] MEDS ORDERED: MAGNESIUM CITRATE 300 ML BOTTLE PO ONE (16:00)
--- NOTE | 2016-08-16 18:17 | GDS ---
DISCHARGE DIAGNOSES: 1. Concern for transient ischemic attack; no acute neurologic changes. 2. Pyuria. 3. Hypokalemia. 4. Lumbar spondylolisthesis with associated radiculopathy. 5. Severe constipation. 6. Benign hypertension. 7. Hyperlipidemia. 8. Lung nodule. CONSULTATIONS DURING STAY: Dr. Eliezer Stovall. BRIEF HISTORY: The patient is a 76-year-old woman with a history of hypertension, hyperlipidemia, lumbar radiculopathy, and history of clipped cerebral aneurysm. She presented to the emergency room with an episode of unresponsiveness at her home. The patient was sitting on her couch. She told her daughter she did not feel well. When the daughter looked over, the patient seemed like she had passed out, but had extreme weakness. By the time EMS arrived, her symptoms completely resolved. The daughter noted that she had no facial drooping or any numbness, tingling, or focal weakness. The patient does have lumbar spondylolisthesis with chronic right-sided radicular pain. She was to undergo lumbar surgery, but ended up getting admitted 1 day before due to her unresponsiveness. She had multiple procedures done including a head and neck CT that showed nothing acute. Head CT showed nothing acute. Her symptoms resolved quickly. It was likely thought that this occurred with dehydration. HOSPITAL COURSE: Per problem: 1. Concern for a transient ischemic attack with no acute neurologic changes. These symptoms resolved at home prior to being transferred to the hospital. I suspect she was dehydrated, and could have been overmedicated. An MRI was not warranted because we are unclear of what type of INSPECTOR PAPER PRODUCTS shunt she has, but she has had no further symptoms. 2. Pyuria. She was recently treated for a urinary tract infection with Keflex. Urine culture showed polymicrobial bacteria/ colonization. Antibiotics were not indicated. 3. Hypokalemia; on electrolyte protocol. 4. 4.5 cm nodule in the right lung in the apex. She needs to get a repeat CT in 6 months. 5. Lumbar spondylolisthesis with a radiculopathy. She is status post a TLIF. 6. Severe constipation. An abdominal x-ray was performed this evening for further evaluation. This showed no obstruction. It shows constipation. If she is able to have a bowel movement, she will leave this evening. 7. Hypertension. Blood pressure is 127/70. 8. Hyperlipidemia; on statin therapy. CONDITION AT DISCHARGE: Stable. Blood pressure is 127/70, O2 sats are 92%, respiratory rate 16, pulse is 83, temp is 36.8 Celsius. MEDICATIONS AT DISCHARGE: Please see transfer of care done by Dr. Murguia. DISCHARGE INSTRUCTIONS: 1. To follow up with Dr. Murguia in 2 weeks. 2. Monitor incision for signs of infection with any drainage, fever, or chills. 3. Wear her brace when she is out of bed; not in the shower. 4. No bending, lifting, twisting more than 5-10 pounds. 5. To get a further CT scan of her chest. She has a 4.5 cm pulmonary nodule that needs follow up. Greater than 30 minutes discharging and coordinating care. Addendum: patient was discharged on 08/17/2106 by neurosurgery. Copy requested to: Dr. Murguia /[id number]/MODL MTDD
[2016-08-16 19:02] LABS: POTASSIUM 3.3 mEq/L (3.5-5.2)
[2016-08-16] MEDS ORDERED: ATORVASTATIN CALCIUM 20 MG TAB PO SCH (21:00)
[2016-08-16] MEDS ORDERED: METOCLOPRAMIDE 10 MG TAB PO PRN (21:33)
[2016-08-16] MEDS ORDERED: METOCLOPRAMIDE 10 MG/2 ML VIAL IVP PRN (21:33)
[2016-08-16] MEDS: ZOLPIDEM TARTRATE 5 MG TAB PO SCH (22:14)
[2016-08-17 06:09] LABS: POTASSIUM 3.8 mEq/L (3.5-5.2)
[2016-08-17 08:09] VITALS: BP 107/84; PULSE 80; RESP 14; TEMP 98.2; O2SAT 95
[2016-08-17] MEDS: METOPROLOL TARTRATE 25 MG TAB PO SCH (09:06)
[2016-08-17] MEDS: SENNOSIDES/DOCUSATE SODIUM TAB PO SCH (09:06)
[2016-08-17] MEDS: FAMOTIDINE 20 MG TAB PO SCH (09:06)
[2016-08-17] MEDS: ENOXAPARIN 40 MG/0.4 ML SYR SC SCH (09:07)
--- NOTE | 2016-08-17 09:12 | NEUSURGPN ---
Assessment/Plan: Assessment: 76 yo F s/p L45 L5S1 PSF and TLIFs POD #3 Plan: -s/p TLIF: pt with expected back pain, legs feel better -brace fit to wear when out of bed -optimize pain control -no need for brace in bed- only OOB -PT/OT-CPM -DVT ppx POD#1 -call with any questions or concerns -Has had several BM -Appreciate IM assisting in care of this patient -Dispo- DC home with home health care most likely -case discussed with Dr. Murguia Subjective: Pt resting in bed, feels better after BM Objective: AAOx3 NAD VSS MAEx4 Motor 5/5 BLE Incision cdi +LT Urinary Catheter in Place: No - Physician Discussed Patient with : Sh[facility] Neurosurgery Physical Exam - Vitals, I&O, Labs I and O 08/16/16 08/17/16 08/18/16 05:59 05:59 05:59 Intake Total 600 Output Total 1875 230 Balance -1275 -230 Intake: Oral (ml) 600 Output: Urine (ml) 1600 200 Bedside Commode 700 Incontinence 200 Toilet 900 Wound Drainage (ml) 275 30 Back Aron Pollack 275 30 Other: Output Comment Toilet pt had some gas and liquid stool; flushed before witnessed Number of Voids Bedside Commode 2 Toilet 1 1 Number of Stools Incontinence 2 Number of Emesis 1 Occurrences Vital Signs Temp Pulse Resp BP Pulse Ox 36.8 C 80 14 107/84 H 95 08/17/16 08:09 08/17/16 09:06 08/17/16 08:09 08/17/16 09:06 08/17/16 08:09 Laboratory Results 08/14/16 06:15 08/17/16 04:39 ICD10 Worksheet Patient Problems: Problems Problem Status Onset Altered mental status Acute
[2016-08-17] MEDS ORDERED: POTASSIUM CL 10 MEQ TAB PO ONE (10:07)
== END 2016-08-17 10:56 | disposition home health service (06) | DRG 29 ==
LOC: EDUNIT# → F1N 08-13 00:54 → OBSVTOIN 08-13 14:34 → F3N 08-14 14:01
PROVIDERS: ADMIT Internal Medicine; ATTEND Internal Medicine
PROC: 0SG00AJ Fusion of Lumbar Vertebral Joint with Interbody Fusion Device, Posterior Approach, Anterior Column, Open Approach (ICD-10-PCS; principal; 2016-08-14)
PROC: 8E0WXBZ Computer Assisted Procedure of Trunk Region (ICD-10-PCS; principal; 2016-08-14)
PROC: 4A1004G Monitoring of Central Nervous Electrical Activity, Intraoperative, Open Approach (ICD-10-PCS; principal; 2016-08-14)
PROC: 01NB0ZZ Release Lumbar Nerve, Open Approach (ICD-10-PCS; principal; 2016-08-14)
PROC: 0SG30AJ Fusion of Lumbosacral Joint with Interbody Fusion Device, Posterior Approach, Anterior Column, Open Approach (ICD-10-PCS; principal; 2016-08-14)
DX: G45.9 Transient cerebral ischemic attack, unspecified (principal); M43.16 Spondylolisthesis, lumbar region; N39.0 Urinary tract infection, site not specified; E86.0 Dehydration; E87.6 Hypokalemia; M54.16 Radiculopathy, lumbar region; K59.09 Other constipation; I10 Essential (primary) hypertension; E78.5 Hyperlipidemia, unspecified; R91.1 Solitary pulmonary nodule; G43.909 Migraine, unspecified, not intractable, without status migrainosus; Z87.891 Personal history of nicotine dependence; Z96.611 Presence of right artificial shoulder joint
CPT/HCPCS: 97116-GP; 97161-GP; 97165-GO; 97535-GO; G8978-GP-CI; G8979-GP-CI; G8980-GP-CI; G8987-GO-CJ; G8988-GO-CI; J0690; J1100; J1170; J1650; J2274; J2405; J2704; J3010

== ENCOUNTER → 2016-09-12 | Outpatient (CLI) | payer OTHER | LOC: BMCIMAGING 08:08 | PROVIDERS: ATTEND Neurological Surgery | DX: Z09 Encounter for follow-up examination after completed treatment for conditions other than malignant neoplasm (principal); Z98.1 Arthrodesis status ==

== ENCOUNTER → 2016-10-29 | Outpatient (CLI) | payer OTHER | LOC: BMCIMAGING 08:28 | PROVIDERS: ATTEND Physician Assistant | DX: Z47.89 Encounter for other orthopedic aftercare (principal); Z98.1 Arthrodesis status ==

== ENCOUNTER → 2017-01-28 | Outpatient (CLI) | payer OTHER | LOC: BMCIMAGING 08:51 | PROVIDERS: ATTEND Physician Assistant | DX: Z98.1 Arthrodesis status (principal) ==

== ENCOUNTER → 2017-02-11 | Outpatient (CLI) | payer OTHER | LOC: FIMAGING 08:42 | PROVIDERS: ATTEND Family Medicine | DX: R91.8 Other nonspecific abnormal finding of lung field (principal); I71.2 Thoracic aortic aneurysm, without rupture ==

== ENCOUNTER → 2017-02-20 | Outpatient (CLI) | payer OTHER | LOC: BMCIMAGING 07:44 | PROVIDERS: ATTEND Family Medicine | DX: Z12.31 Encounter for screening mammogram for malignant neoplasm of breast (principal) | CPT/HCPCS: G0202 ==

== ENCOUNTER → 2017-03-19 | Outpatient (CLI) | payer OTHER | LOC: FIMAGING 11:38 | PROVIDERS: ATTEND Physician Assistant | DX: M48.06 Spinal stenosis, lumbar region (principal); M48.07 Spinal stenosis, lumbosacral region; M46.96 Unspecified inflammatory spondylopathy, lumbar region; Z78.0 Asymptomatic menopausal state ==

== ENCOUNTER → 2017-08-28 | Outpatient (CLI) | payer OTHER | LOC: BMCIMAGING 08:43 | PROVIDERS: ATTEND Physician Assistant | DX: Z98.1 Arthrodesis status (principal) ==

== ENCOUNTER → 2017-09-18 | Outpatient (CLI) | payer OTHER | LOC: FIMAGING 13:10 | PROVIDERS: ATTEND Family Medicine | DX: R91.8 Other nonspecific abnormal finding of lung field (principal); J43.2 Centrilobular emphysema; K80.20 Calculus of gallbladder without cholecystitis without obstruction ==

== ENCOUNTER → 2018-04-22 | Outpatient (CLI) | payer OTHER | LOC: BMCIMAGING 16:38 | PROVIDERS: ATTEND Orthopaedic Surgery Hand Surgery | DX: M24.811 Other specific joint derangements of right shoulder, not elsewhere classified (principal); Z96.611 Presence of right artificial shoulder joint ==

== ENCOUNTER → 2018-05-08 | Outpatient (CLI) | payer OTHER | LOC: FIMAGING 08:33 | PROVIDERS: ATTEND Orthopaedic Surgery Hand Surgery | DX: M25.511 Pain in right shoulder (principal); Z96.611 Presence of right artificial shoulder joint ==